=== PATIENT | female | born 1960 | race Asian ===

== ENCOUNTER 2023-07-13 09:10 | Day surgery (SDC) | payer OTHER ==
[2023-07-13] MEDS ORDERED: fentaNYL citrate 0.05 MG/ML VIAL ONE (13:47)
[2023-07-13] MEDS ORDERED: LIDOCAINE 2% 100 MG/5 ML UJET TP ONE (13:47)
[2023-07-13] MEDS ORDERED: fentaNYL citrate 0.05 MG/ML VIAL IVP ONE (15:00)
== END 2023-07-13 15:21 | disposition home or self-care (01) ==
LOC: MDS 09:10 → MMU 11:02 → MDS 15:21
PROVIDERS: ATTEND Internal Medicine Gastroenterology
DX: Z12.11 Encounter for screening for malignant neoplasm of colon (principal); I10 Essential (primary) hypertension; F17.210 Nicotine dependence, cigarettes, uncomplicated
CPT/HCPCS: 45378; J3010